=== PATIENT | male | born 1960 | race American Indian/Alaskan Native ===

== ENCOUNTER 2018-02-27 11:23 | Emergency (ER) | payer SELFPAY ==
[2018-02-27] MEDS ORDERED: TYLENOL ONE (14:56)
[2018-02-27] MEDS: TYLENOL PO ONE (14:59)
--- NOTE | 2018-02-27 18:14 | Emergency Department Report ---
HPI - General Chief Complaint: Dental/Oral Time Seen by Provider: 02/27/18 18:13 - HPI HPI: This is 57-year-old male complaining of toothache to the right side of his mouth. Patient is HIV positive and is onto medication. He said he goes to [facility] for treatment and his viral load was undetectable and CD4 count was greater than 500. He said he visits [facility] next month. Patient says he has not contacted a dentist but he does have one off [place] that he will call. He is reporting pain 10 out of 10 to started 2 days ago. Pain is worse with talking and eating. Denies any nausea or vomiting. Denies any fever or chills. Denies any cough or respiratory distress. Denies any chest pain. Denies any nasal congestion or runny nose. Patient's that he's been taking over-the- counter pain medication but is not helping. ED Past Medical Hx - Past Medical History Previous Medical History?: Yes Hx HIV: Yes (stable) - Surgical History Past Surgical History?: No - Family History Family history: hypertension - Social History Smoking Status: Current Every Day Smoker Substance Use Type: None Other Social History: Single male - Medications Home Medications: Home Medications Medication Instructions Recorded Confirmed Last Taken Type Acetaminophen/Codeine [Tylenol 1 tab PO Q6H PRN #12 tab 02/27/18 Unknown Rx /Codeine # 3 tab] Clindamycin [Clindamycin CAP] 300 mg PO Q8H 10 Days #30 cap 02/27/18 Unknown Rx Ibuprofen [Motrin] 600 mg PO Q8H PRN #15 tablet 02/27/18 Unknown Rx ED Review of Systems ROS: Stated complaint: TOOTH PAIN Other details as noted in HPI Constitutional: denies: chills, fever Eyes: vision change ENT: dental pain. denies: ear pain, throat pain, congestion Respiratory: denies: cough, shortness of breath, SOB with exertion, wheezing Cardiovascular: denies: chest pain, palpitations Gastrointestinal: denies: abdominal pain, nausea, vomiting, diarrhea Genitourinary: denies: urgency, dysuria Musculoskeletal: denies: back pain, joint swelling, arthralgia, myalgia Skin: denies: rash, lesions Physical Exam - Physical Exam Vital Signs: Vital Signs 02/27/18 11:32 Temperature 98.2 F Pulse Rate 77 Blood Pressure 146/90 O2 Sat by Pulse 98 Oximetry Vital Signs 18 0518 11:32 18:32 Temperature 98.2 F 99.4 F Pulse Rate 77 69 Respiratory 18 Rate Blood Pressure 146/90 Blood Pressure 153/89 [Left] O2 Sat by Pulse 98 99 Oximetry General: This is a 57-year-old male well-nourished well-developed in no acute distress. Physical Exam: Head: Normocephalic, atraumatic, no abrasion, no bruising and no contusion. Eyes: Biateral pupils equal and reactive to light, bilateral EOM intact.. Bilateral conjunctival and sclera without injection, normal accommodation. No nystagmus Mouth: Mucosa moist , no pharyngeal exudate or erythema. No peritonsillar abscesses. Uvula is midline and oral airways patent. Patient with mild gingivitis, tongue is normal, positive tenderness around tooth #1 to an 32. No induration but mild erythema. Dental caries noted Ears: Bilateral TMs pearly quintanilla Bilateral EAC without any redness swelling or drainage. No mastoid bone tenderness Neck: Supple, No Cervical adenopathy, full range of motion and no C-spine tenderness. No swelling or tracheal deviation normal reflexes Cardiovascular: S1, S2. Regular rate and rhythm. No murmur. Capillary refill is less then 3 seconds. Lungs: Clear to auscultate bilaterally. No rhonchi, wheezes or rales. No chest wall tenderness. No chest contusion. No bruising to chest. Extremities: No clubbing, cyanosis or edema. +2 pulses. No neurovascular compromise Skin: Clean, dry and intact. No rash or lesions. Psych: Normal mood and behavior ED Course Vital Signs 02/27/18 11:32 Temperature 98.2 F Pulse Rate 77 Blood Pressure 146/90 O2 Sat by Pulse 98 Oximetry Vital Signs 18 0518 11:32 18:32 Temperature 98.2 F 99.4 F Pulse Rate 77 69 Respiratory 18 Rate Blood Pressure 146/90 Blood Pressure 153/89 [Left] O2 Sat by Pulse 98 99 Oximetry - Reevaluation(s) Reevaluation #1: 02/27/18 18:45 Patient received Motrin 800 mg by mouth and emergency room for toothache and Rocephin 1 g IM for dental infection. He tolerated well and no adverse reaction ED Medical Decision Making - Medical Decision Making ED course: Here complaining of toothache and report that he has swelling in his mouth. Denies any drooling or sore throat. Patient found to have mild gingivitis with oral cellulitis and some dental caries right side of the mouth. I discussed patient that he will need to call dentist on Friday to schedule an appointment for evaluation and treatment. I also told him that if this is left untreated after he started on antibiotic and will return in 8 to cause him to have infection in his blood and lead to . Patient is HIV positive and is on medication and says that he goes through full tachycardia with department which she is due to go next month. He was given Rocephin 1 g IM for oral cellulitis and Motrin 800 mg by mouth for toothache. I discussed his diagnosis and treatment plan and also he is a smoker so I discussed effects of smoking and on gums and that he needs to stop smoking as the skin affects his gums and his whole person. His understanding and patient is stable feeling better and discharged home a prescription for penicillin V, Tylenol No. 3 and Motrin Critical care attestation.: If time is entered above; I have spent that time in minutes in the direct care of this critically ill patient, excluding procedure time. ED Disposition Clinical Impression: Tooth ache, Oral cellulitis, Dental caries, Gingivitis, Nicotine abuse Disposition: DC- TO HOME OR SELFCARE Is pt being admited?: No Does the pt Need Aspirin: No Condition: Stable Instructions: How to Stop Smoking (ED), Dental Caries (ED), Toothache (ED), Cellulitis (ED), Dental Abscess (ED), Gingivitis (ED) Additional Instructions: Please see discharge instruction on to stop smoking Smoking drinking caused her deterioration gums Please take antibiotic as prescribed Follow up with infectious disease specialist in 2-3 days Take Tylenol No. 3 for moderate to severe pain and Motrin for mild pain. Please take medication with food as this can cause irritation to stomach lining call dental office on Friday to schedule an appointment for follow-up visit to manage infection a few gums and around the tooth. He can also call [facility] dental clinic if she cannot get in to your dental clinic. Prescriptions: Acetaminophen/Codeine [Tylenol /Codeine # 3 tab] 1 tab PO Q6H PRN #12 tab PRN Reason: moderate to severe pain Clindamycin [Clindamycin CAP] 300 mg PO Q8H 10 Days #30 cap Ibuprofen [Motrin] 600 mg PO Q8H PRN #15 tablet PRN Reason: Pain Referrals: PRIMARY CARE,MD [Primary Care Provider] - 2-3 Days [facility] [Outside] - 2-3 Days Forms: Work/School Release Form(ED)
[2018-02-27] MEDS: ROCEPHIN IM ONE (18:26)
[2018-02-27] MEDS: MOTRIN PO ONE (18:26)
[2018-02-27] MEDS: XYLOCAINE 1% MPF 5 mL INFILTRATI ONE (18:27)
[2018-02-27 18:33] VITALS: BP 153/89
== END 2018-02-27 19:02 | disposition home or self-care (01) ==
LOC: ED 11:23
DX: K05.10 Chronic gingivitis, plaque induced (principal); K12.2 Cellulitis and abscess of mouth; K02.9 Dental caries, unspecified; F17.200 Nicotine dependence, unspecified, uncomplicated
CPT/HCPCS: 96372; 99282; J0696